=== PATIENT | male | born 1980 | race Caucasian/White ===

== ENCOUNTER → 2024-02-19 07:17 | Outpatient (REF) | payer BC, SELFPAY ==
[2024-02-19 08:04] LABS: % Basophils 0.8 % (0-2); % Eosinophils 2.5 % (0-6); % Immature Granulocytes 1.1 % (0-0.5); % Lymphocytes 32.7 % (20.5-51.1); % Monocytes 13.2 % (1.7-9.3); % Neutrophils 49.7 % (42.2-75.2); Absolute Basophils 0.1 10^3/uL (0-0.2); Absolute Eosinophils 0.2 10^3/uL (0-0.7); Absolute Immature Granulocytes 0.1 10^3/uL (0-0.05); Absolute Lymphocytes 2.1 10^3/uL (1.2-3.4); Absolute Monocytes 0.9 10^3/uL (0.1-0.6); Absolute Neutrophils 3.2 10^3/uL (1.4-6.5); Hematocrit 45.8 % (39.0-52.0); Hemoglobin 16.3 g/dL (13.0-18.0); Mean Corp Hgb Conc. 35.6 g/dL (33.0-37.0); Mean Corpuscular Hgb 31.3 pg (27.0-31.0); Mean Corpuscular Volume 87.9 fL (80.0-94.0); Mean Platelet Volume 8.9 fL (7.4-10.4); Nucleated Red Blood Cells % 0 % (-); Platelet Count 284 10^3/uL (130-400); Red Blood Cell Count 5.21 10^6/uL (4.70-6.10); Red Cell Dist. Width 11.6 % (11.5-14.5); White Blood Cell Count 6.4 10^3/uL (4.8-10.8)
[2024-02-19 08:20] LABS: ALT (SGPT) 56 U/L (0-50); AST (SGOT) 39 U/L (17-59); Albumin 4.5 g/dl (3.5-5.0); Alkaline Phosphatase 89 U/L (38-126); Blood Urea Nitrogen 11 mg/dl (9-20); Calcium 9.4 mg/dl (8.4-10.2); Carbon Dioxide 30 mmol/L (22-30); Chloride 103 mmol/L (98-107); Glucose 99 mg/dl (70-99); HDL Cholesterol 41 mg/dl; LDL Cholesterol, Calculated 98 mg/dl; Potassium 4.3 mmol/L (3.5-5.1); Sodium 141 mmol/L (135-145); Total Bilirubin 0.7 mg/dl (0.2-1.3); Total Cholesterol 177 mg/dl (50-199); Total Protein 7.3 g/dl (6.3-8.2); Triglyceride 191 mg/dl (10-149); Very Low Density Lipoprotein 38 mg/dl (0-30); eGFR > 60.00
== END ==
LOC: REG 07:17
PROVIDERS: ATTENDING PHYSICIAN Dermatology; FAMILY PHYSICIAN Physician Assistant
DX: R22.40 Localized swelling, mass and lump, unspecified lower limb (principal); G47.33 Obstructive sleep apnea (adult) (pediatric); E66.3 Overweight; L40.9 Psoriasis, unspecified; Z80.42 Family history of malignant neoplasm of prostate; L40.0 Psoriasis vulgaris
CPT/HCPCS: 36415; 73630; 80053; 80061; 85025; G0103

== ENCOUNTER → 2024-04-04 07:03 | Outpatient (REF) | payer BC, SELFPAY | LOC: MRI 3T 07:03 | PROVIDERS: ATTENDING PHYSICIAN Student in an Organized Health Care Education/Training Program; FAMILY PHYSICIAN Internal Medicine | DX: M79.671 Pain in right foot (principal) | CPT/HCPCS: 73718 ==

== ENCOUNTER 2024-05-13 06:06 | Day surgery (SDC) | payer BC, SELFPAY ==
[2024-05-13] VITALS (7 sets, daily range): BP systolic 120–148; BP diastolic 80–88; BMI 30.6
[2024-05-13] MEDS: TYLENOL 1000 MG PO (06:29)
[2024-05-13] MEDS: CELEBREX 200 MG PO (06:29)
[2024-05-13] MEDS: NORMOSOL-R/PLASMALYTE-A 1000 IV (06:29)
== END 2024-05-13 09:15 | disposition home or self-care (01) ==
LOC: SDS 06:06
PROVIDERS: ATTENDING PHYSICIAN Student in an Organized Health Care Education/Training Program
DX: D16.31 Benign neoplasm of short bones of right lower limb (principal)
CPT/HCPCS: 28175; 11730; 88305; 88311

== ENCOUNTER → 2024-07-25 14:47 | Outpatient (REF) | payer BC, SELFPAY | LOC: RAD 14:47 | PROVIDERS: ATTENDING PHYSICIAN Student in an Organized Health Care Education/Training Program; FAMILY PHYSICIAN Internal Medicine | DX: M79.671 Pain in right foot (principal) | CPT/HCPCS: 73630 ==

== ENCOUNTER → 2025-03-18 16:47 | Outpatient (REF) | payer BC, SELFPAY | LOC: RAD 16:47 | PROVIDERS: ATTENDING PHYSICIAN Orthopaedic Surgery Hand Surgery; FAMILY PHYSICIAN Internal Medicine | DX: M25.521 Pain in right elbow (principal) | CPT/HCPCS: 73080 ==

== ENCOUNTER 2025-03-22 09:56 | Emergency (ER) | payer SELFPAY ==
[2025-03-22 09:57] VITALS: BMI 31.6
[2025-03-22 10:06] VITALS: BP 162/95
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
[2025-03-22 11:39] LABS: Hematocrit 43.2 % (39.0-52.0); Hemoglobin 15.7 g/dL (13.0-18.0); Mean Corp Hgb Conc. 36.3 g/dL (33.0-37.0); Mean Corpuscular Volume 87.6 fL (80.0-94.0); Nucleated Red Blood Cells % 0 % (-); Platelet Count 178 10^3/uL (130-400); Red Cell Dist. Width 11.9 % (11.5-14.5)
[2025-03-22 12:01] LABS: ALT (SGPT) 67 U/L (0-50); AST (SGOT) 40 U/L (17-59); Albumin 4.6 g/dl (3.5-5.0); Alkaline Phosphatase 73 U/L (38-126); Blood Urea Nitrogen 9 mg/dl (9-20); Calcium 9.4 mg/dl (8.4-10.2); Carbon Dioxide 27 mmol/L (22-30); Chloride 106 mmol/L (98-107); Estimated Creatinine Clearance 112 ml/min; Glucose 124 mg/dl (70-99); Potassium 4.8 mmol/L (3.5-5.1); Sodium 140 mmol/L (135-145); Total Protein 7.1 g/dl (6.3-8.2); eGFR > 60.00
== END 2025-03-22 14:52 | disposition home or self-care (01) ==
LOC: EMR 09:56
PROVIDERS: Physician Assistant; EMERGENCY PHYSICIAN Emergency Medicine; FAMILY PHYSICIAN Internal Medicine
DX: R10.10 Upper abdominal pain, unspecified (principal); R20.2 Paresthesia of skin; V49.40XA Driver injured in collision with unspecified motor vehicles in traffic accident, initial encounter
CPT/HCPCS: 99284; 71260; 74177; 80053; 85025; Q9967